=== PATIENT | female | born 1945 | race Caucasian/White ===

== ENCOUNTER 2016-06-09 09:35 | Day surgery (SDC) | payer MEDICARE ==
[2014-12-09 17:28] VITALS: PULSE 93
[2016-06-01 13:38] VITALS: BMI 31.5
[~2016-06-09 09:35] MED LIST: Lactated Ringer's 1,000 ML IV SCH
[2016-06-09] MEDS ORDERED: Propofol 10 mg/ml Inj (20 ML) ONE (09:49)
[2016-06-09 12:44] VITALS: RESP 18; TEMP 97.5
[2016-06-09 13:24] VITALS: BP 185/92; PULSE 64; O2SAT 97
== END 2016-06-09 13:14 | disposition home or self-care (01) ==
LOC: ENDO 09:35
PROVIDERS: ATTEND Specialist
DX: K63.5 Polyp of colon (principal); K57.30 Diverticulosis of large intestine without perforation or abscess without bleeding; K64.8 Other hemorrhoids; K62.5 Hemorrhage of anus and rectum
CPT/HCPCS: 45380; 82948; 88305; J2001; J2704; J7040; J7120